=== PATIENT | male | born 1975 | race Caucasian/White ===

== ENCOUNTER → 2024-07-14 12:31 | Outpatient (REF) | payer BC, SELFPAY | LOC: MRI 3T 12:31 | PROVIDERS: ATTENDING PHYSICIAN Orthopaedic Surgery; FAMILY PHYSICIAN Physician Assistant Medical | DX: S86.912A Strain of unspecified muscle(s) and tendon(s) at lower leg level, left leg, initial encounter (principal); S83.207A Unspecified tear of unspecified meniscus, current injury, left knee, initial encounter | CPT/HCPCS: 73721 ==